=== PATIENT | male | born 1995 | race Caucasian/White ===

== ENCOUNTER 2017-01-03 01:33 | Emergency (ER) | payer OTHER | END 2017-01-03 03:00 | disposition home or self-care (01) | LOC: D.ER 01:33 | DX: F45.8 Other somatoform disorders (principal); F41.9 Anxiety disorder, unspecified; F17.200 Nicotine dependence, unspecified, uncomplicated ==

== ENCOUNTER 2017-01-04 21:50 | Emergency (ER) | payer OTHER ==
[2017-01-04 22:53] LABS: APPEARANCE CLEAR (CLEAR); BILIRUBIN NEGATIVE (NEGATIVE); COLOR YELLOW (YELLOW); GLUCOSE NEGATIVE (NEGATIVE); KETONE NEGATIVE (NEGATIVE); LEUKOCYTE ESTERASE NEGATIVE (NEGATIVE); NITRITE NEGATIVE (NEGATIVE); PROTEIN NEGATIVE (NEGATIVE); UROBILINOGEN NORMAL (NORMAL)
[2017-01-04 23:01] LABS: UDS - AMPHET NEGATIVE QUAL (NEGATIVE); UDS - BARB NEGATIVE QUAL (NEGATIVE); UDS - BENZO NEGATIVE QUAL (NEGATIVE); UDS - COCAINE NEGATIVE QUAL (NEGATIVE); UDS - METH NEGATIVE QUAL (NEGATIVE); UDS - OPIATE NEGATIVE QUAL (NEGATIVE); UDS - PCP NEGATIVE QUAL (NEGATIVE); UDS - THC NEGATIVE QUAL (NEGATIVE)
[2017-01-04 23:04] LABS: BASOPHILS 0.3 % (0-2); EOSINOPHILS 1.9 % (0-7); HEMATOCRIT 40.4 % (42.0-54.0); HEMOGLOBIN 13.4 g/dL (13.5-17.5); IMMATURE GRANULOCYTES 0.1 % (0-5); MCH 30.8 pg (26.0-34.0); MCHC 33.2 g/dL (31.0-37.0); MCV 92.9 fL (80.0-100.0); MEAN PLATELET VOLUME 10.5 fL (7.4-10.4); MONOCYTES 7.9 % (2-11); NEUTROPHILS 59.8 % (40-80); PLATELET COUNT 201 10x3/uL (130-400); RBC 4.35 10x6/uL (4.20-6.10); RDW 13.2 % (11.5-14.5); WBC 6.7 10x3/uL (4.8-10.8)
[2017-01-04 23:38] LABS: ALBUMIN 3.8 g/dL (3.4-5.0); ALKALINE PHOSPHATASE 74 U/L (46-116); ALT (SGPT) 51 U/L (10-68); BILIRUBIN - TOTAL 0.95 mg/dL (0.2-1.3); CALC OSMOLALITY 283 mosm/kg (275-300); CARBON DIOXIDE 31.1 mmol/L (21.0-32.0); CHLORIDE - SERUM 106 mmol/L (98-107); CREATININE - SERUM 0.9 mg/dL (0.6-1.3); GLUCOSE 96 mg/dL (74-106); POTASSIUM - SERUM 3.8 mmol/L (3.5-5.1); PROTEIN - SERUM 6.8 g/dL (6.4-8.2); SODIUM 143 mmol/L (136-145); UREA NITROGEN 11 mg/dL (7-18); eGFR NON AFRICAN AMERICAN > 90 mL/min (90-120)
== END 2017-01-05 02:00 | disposition home or self-care (01) ==
LOC: D.ER 21:50
PROVIDERS: Family Medicine
DX: T14.91 Suicide attempt (principal); T43.592A Poisoning by other antipsychotics and neuroleptics, intentional self-harm, initial encounter; Y92.89 Other specified places as the place of occurrence of the external cause; Y99.8 Other external cause status; F41.9 Anxiety disorder, unspecified; F45.8 Other somatoform disorders

== ENCOUNTER 2018-10-11 02:39 | Emergency (ER) | payer MEDICAID ==
[~2018-10-11] VITALS: Ht 175.3 cm; Wt 85.5 kg
[2018-10-11 02:43] VITALS: Ht 175.3 cm; Wt 85.5 kg
[2018-10-11 03:29] LABS: BASOPHILS 0.4 % (0-2); EOSINOPHILS 2.3 % (0-7); HEMATOCRIT 42.8 % (42.0-54.0); HEMOGLOBIN 15.2 g/dL (13.5-17.5); LYMPHOCYTES 46.3 % (15-50); MCH 30.5 pg (26.0-34.0); MCHC 35.5 g/dL (31.0-37.0); MCV 85.9 fL (80.0-100.0); MEAN PLATELET VOLUME 10.6 fL (7.4-10.4); MONOCYTES 8.3 % (2-11); NEUTROPHILS 42.7 % (40-80); PLATELET COUNT 174 10x3/uL (130-400); RBC 4.98 10x6/uL (4.20-6.10); RDW 13.1 % (11.5-14.5); WBC 7.1 10x3/uL (4.8-10.8)
[2018-10-11 03:37] LABS: ALBUMIN 3.6 g/dL (3.4-5.0); ALKALINE PHOSPHATASE 58 U/L (46-116); ALT (SGPT) 28 U/L (10-68); BILIRUBIN - TOTAL 1.32 mg/dL (0.2-1.3); CALC OSMOLALITY 284 mosm/kg (275-300); CALCIUM 8.2 mg/dL (8.5-10.1); CHLORIDE - SERUM 105 mmol/L (98-107); CREATININE - SERUM 0.9 mg/dL (0.6-1.3); GLUCOSE 99 mg/dL (74-106); MAGNESIUM - SERUM 2.1 mg/dL (1.8-2.4); POTASSIUM - SERUM 3.6 mmol/L (3.5-5.1); PROTEIN - SERUM 6.7 g/dL (6.4-8.2); SODIUM 143 mmol/L (136-145); UREA NITROGEN 12 mg/dL (7-18); eGFR NON AFRICAN AMERICAN > 90 mL/min (90-120)
[2018-10-11 04:42] VITALS: BP 117/65
[2018-10-13 09:19] LABS: ALP - ISO (ALP) 60 IU/L (39-117); ALP - ISO (BONE) FRACTION 38 % (12-68); ALP - ISO (LIVER) FRACTION 61 % (13-88); ALP - ISO(INTESTINAL) FRACTION 1 % (0-18)
== END 2018-10-11 04:42 | disposition home or self-care (01) ==
LOC: D.ER 02:39
PROVIDERS: Family Medicine
DX: F10.129 Alcohol abuse with intoxication, unspecified (principal); E83.51 Hypocalcemia